=== PATIENT | male | born 1950 | race Caucasian/White ===

== ENCOUNTER 2023-04-18 09:45 | Emergency (ER) | payer MEDICARE, BC ==
[~2023-04-18] VITALS: Ht 180.3 cm; Wt 79.4 kg
[2023-04-18] MEDS ORDERED: MODA100T29 PO (10:08)
[2023-04-18] MEDS ORDERED: IV NORMAL SALINE 500 ML BAG IV ONE (10:15)
[2023-04-18] MEDS ORDERED: HALOPERIDOL LACTATE 5 MG/1 ML VIAL ONE ×2 (10:16→10:54)
[2023-04-18] MEDS ORDERED: diphenhydrAMINE 50 MG/1 ML VIAL ONE (10:19)
[2023-04-18 10:28] LABS: BASOPHILS % (AUTO) 0.7 % (0.0-2.0); EOSINOPHILS # (AUTO) 0.1 K/uL (0.0-0.7); EOSINOPHILS % (AUTO) 1.8 % (0.0-7.0); HEMATOCRIT 37.9 % (36.7-47.1); LYMPHOCYTES # (AUTO) 0.6 K/uL (0.8-4.8); LYMPHOCYTES % (AUTO) 9.2 % (20.5-51.5); MEAN CORPUSCULAR HEMOGLOBIN 32.2 uug (23.8-33.4); MEAN CORPUSCULAR HGB CONC 34 g/dL (32.5-36.3); MONOCYTES # (AUTO) 0.5 K/uL (0.1-1.30); MONOCYTES % (AUTO) 8.7 % (0.0-11.0); NEUTROPHILS # (AUTO) 4.9 K/uL (1.8-8.9); NEUTROPHILS % (AUTO) 79.6 % (38.5-71.5); PLATELET COUNT (AUTO) 238 K/uL (152-348); RED BLOOD CELL COUNT(AUTO) 4.03 MIL/uL (4.06-5.63); RED CELL DISTRIBUTION WIDTH 12.5 % (12.1-16.2); WHITE BLOOD COUNT (AUTO) 6.1 K/uL (3.6-10.2)
[2023-04-18] MEDS ORDERED: diphenhydrAMINE 50 MG/1 ML VIAL IV ONE (10:30)
[2023-04-18] MEDS ORDERED: HALOPERIDOL LACTATE 5 MG/1 ML VIAL IV ONE ×2 (10:30→11:00)
[2023-04-18 11:42] LABS: DIFFERENTIAL COMMENT 1
[2023-04-18 12:26] LABS: CALCIUM 8.9 mg/dL (8.5-10.1); CARBON DIOXIDE 28 mmol/L (21-32); CHLORIDE 107 mmol/L (98-107); GLUCOSE 102 mg/dL (74-106); POTASSIUM 3.5 mmol/L (3.5-5.1); SODIUM SERUM 146 mmol/L (136-145); UREA NITROGEN, BLOOD 14 mg/dL (7-18)
[2023-04-18 12:29] LABS: AMMONIA < 10 umol/L (11-32)
[2023-04-18 16:30] VITALS: O2SAT 98
== END 2023-04-18 17:02 | disposition home or self-care (01) ==
LOC: ER 09:45
DX: R45.1 Restlessness and agitation (principal); T50.905A Adverse effect of unspecified drugs, medicaments and biological substances, initial encounter; R51.9 Headache, unspecified; R07.89 Other chest pain; Z79.899 Other long term (current) drug therapy; Y92.89 Other specified places as the place of occurrence of the external cause
CPT/HCPCS: 99285; 96374; 70450; 71045; 96375; 80048; 82140; 85025; 84484; 36415; 93005; 83605; J1200; J1630 ×2; J7040; A4606; A4663